=== PATIENT | female | born 1955 | race Hispanic/Latino ===

== ENCOUNTER 2021-09-11 14:15 | Emergency (ER) | payer OTHER, SELFPAY ==
[~2021-09-11] VITALS: Ht 167.6 cm; Wt 79.4 kg
[2021-09-11] MEDS: HYDROCODONE/ACETAMINOPHEN 10/325 MG TAB PO ONE (14:40)
[2021-09-11] MEDS: CEPHALEXIN 500 MG CAPSULE PO ONE (14:40)
[2021-09-11] MEDS: BACITRACIN 1 EACH PACKET TP ONE (14:40)
[2021-09-11] MEDS ORDERED: CEPH500B PO (15:19)
[2021-09-11] MEDS ORDERED: ACET-2079 PO (15:19)
[2021-09-11 15:21] VITALS: BP 132/67
[2021-09-13] MEDS ORDERED: ACET-2079 PO (10:46)
== END 2021-09-11 15:28 | disposition home or self-care (01) ==
LOC: EDH 14:15
DX: S82.841A Displaced bimalleolar fracture of right lower leg, initial encounter for closed fracture (principal); S90.32XA Contusion of left foot, initial encounter; S90.31XA Contusion of right foot, initial encounter; S80.01XA Contusion of right knee, initial encounter; E78.00 Pure hypercholesterolemia, unspecified; E11.9 Type 2 diabetes mellitus without complications; I10 Essential (primary) hypertension; Z90.49 Acquired absence of other specified parts of digestive tract; X58.XXXA Exposure to other specified factors, initial encounter; Y93.89 Activity, other specified; Y92.89 Other specified places as the place of occurrence of the external cause; Y99.8 Other external cause status
CPT/HCPCS: 29515; 73562; 73610; 73630

== ENCOUNTER 2022-02-10 20:48 | Emergency (ER) | payer OTHER ==
[~2022-02-10] VITALS: Ht 160 cm; Wt 74.8 kg
[~2022-02-10 20:48] MED LIST: ACET-2079 PO; CEPH500B PO
[2022-02-10] MEDS ORDERED: AMOX500C2 PO (21:54)
[2022-02-10 22:02] VITALS: BP 145/68
== END 2022-02-10 22:06 | disposition home or self-care (01) ==
LOC: EDH 20:48
DX: H66.92 Otitis media, unspecified, left ear (principal); E11.9 Type 2 diabetes mellitus without complications; E78.00 Pure hypercholesterolemia, unspecified; I10 Essential (primary) hypertension; Z79.899 Other long term (current) drug therapy

== ENCOUNTER 2022-06-12 09:46 | Emergency (ER) | payer OTHER, MEDICARE ==
[~2022-06-12] VITALS: Ht 165.1 cm; Wt 73.9 kg
[~2022-06-12 09:46] MED LIST changes: +AMOX500C2 PO
[2022-06-12] MEDS ORDERED: IBUPROFEN 600 MG TABLET PO ONE (10:30)
[2022-06-12 11:38] VITALS: BP 115/57
[2022-06-12] MEDS ORDERED: IBUP-2070 PO (11:40)
== END 2022-06-12 12:01 | disposition home or self-care (01) ==
LOC: EDH 09:46
DX: S92.354A Nondisplaced fracture of fifth metatarsal bone, right foot, initial encounter for closed fracture (principal); S09.90XA Unspecified injury of head, initial encounter; I10 Essential (primary) hypertension; E78.00 Pure hypercholesterolemia, unspecified; E11.9 Type 2 diabetes mellitus without complications; M19.90 Unspecified osteoarthritis, unspecified site; Z90.710 Acquired absence of both cervix and uterus; Z90.49 Acquired absence of other specified parts of digestive tract; X50.1XXA Overexertion from prolonged static or awkward postures, initial encounter; Y93.89 Activity, other specified; Y92.89 Other specified places as the place of occurrence of the external cause; Y99.8 Other external cause status
CPT/HCPCS: 70450; 73600; 73630